=== PATIENT | female | born 1965 | race Caucasian/White ===

== ENCOUNTER 2017-06-30 10:50 | Emergency (ER) | payer OTHER ==
[2017-06-30 12:08] VITALS: BP 119/82
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
== END 2017-06-30 13:17 | disposition home or self-care (01) ==
LOC: UCCORT 10:50
DX: S06.0X9A Concussion with loss of consciousness of unspecified duration, initial encounter (principal); V89.2XXA Person injured in unspecified motor-vehicle accident, traffic, initial encounter; Y92.9 Unspecified place or not applicable
CPT/HCPCS: 70450; 99211; G0463

== ENCOUNTER 2018-06-25 20:34 | Emergency (ER) | payer MEDICAID, OTHER ==
[2018-06-25] MEDS ORDERED: Ondansetron ODT TAB* 4 MG PO ONE ×2 (20:52→21:55)
[2018-06-25 21:12] VITALS: BP 120/80
[2018-06-25] MEDS ORDERED: Cyclobenzaprine TAB* 10 MG PO ONE (21:22)
[2018-06-25] MEDS ORDERED: Ketorolac INJ* 60 MG/2 ML VIAL IM ONE (21:22)
--- NOTE | 2018-06-25 21:27 | UC ---
Neck Pain HPI - HPI Summary HPI Summary: 53-year-old female comes to clinic [facility] with a chief complaint of neck and left shoulder pain. Patient did have this pain on and off for years. It is worse over the last several weeks. She has gotten steroid shots in her left shoulder for the shoulder pain. She reports having had injections in her upper back also which did not help with her chronic neck and back pain. She recently had an MRI of her cervical spine is having a follow-up with an orthopedist and also with a neurosurgeon. No weakness or numbness. No chest pain or shortness of breath. - History of Current Complaint Chief Complaint: UCHeadache Stated Complaint: HEADACHE, SHOULDER/NECK PAIN Time Seen by Provider: 06/25/18 20:59 Hx Last Menstrual Period: 1 yr Pain Intensity: 9 - Allergies/Home Medications Allergies/Adverse Reactions: Allergies Allergy/AdvReac Type Severity Reaction Status Date / Time No Known Allergies Allergy Verified 06/25/18 20:53 Home Medications: Home Medications Acetaminophen 650 mg PO Q6H PRN 06/25/18 [History Confirmed 06/25/18] PMH/Surg Hx/FS Hx/Imm Hx Previously Healthy: Yes - CHRONIC NECK AND LT SHOULDER PAIN - Surgical History Surgical History: Yes Surgery Procedure, Year, and Place: appy. TUBAL LIGATION. Lt SHOULDER - LABRUM TEAR - Family History Known Family History: Negative: Diabetes - Social History Alcohol Use: Rare Substance Use Type: None Smoking Status (MU): Light Every Day Tobacco Smoker Type: Cigarettes Amount Used/How Often: 1/2 PPD Have You Smoked in the Last Year: Yes Household Exposure Type: Cigarettes - Immunization History Most Recent Tetanus Shot: unknown Review Of Systems Skin: Positive: Negative Eyes: Positive: Negative ENT: Positive: Negative Respiratory: Positive: Negative Cardiovascular: Positive: Negative Gastrointestinal: Positive: Negative Genitourinary: Positive: Negative Musculoskeletal: Positive: Other: - SEE HPI Neurological: Positive: Other - SEE HPI Psychological: Positive: Negative All Other Systems Reviewed And Are Negative: No Physical Exam Triage Information Reviewed: Yes Appearance: Well-Appearing, Well-Nourished, Pain Distress - MILD/MODERATE Vital Signs: Initial Vital Signs Temp 98.4 F 06/25/18 20:59 Pulse 76 06/25/18 20:59 Resp 16 06/25/18 20:59 BP 120/80 06/25/18 20:59 Pulse Ox 100 06/25/18 20:59 Vital Signs Reviewed: Yes Eye Exam: Normal Eyes: Positive: Conjunctiva Clear Neck: Positive: Other: - TENDER MIDLIN Respiratory: Positive: Lungs clear, Normal breath sounds, No respiratory distress Cardiovascular: Positive: RRR Musculoskeletal: Positive: Other: - Patient is tender to palpation midline of her neck. She is also tender to palpation in the left trapezius and the left shoulder. Normal radial pulses bilaterally normal sensation and strength in both hands fingers and elbows. No sensation deficit. Patient declines range of motion testing of the left shoulder secondary to pain. Neurological: Positive: Alert, Muscle Tone Normal Psychological Exam: Normal Psychological: Positive: Age Appropriate Behavior Skin Exam: Normal Neck Pain Course/Dx - Course Course Of Treatment: Patient recently had an MRI and has follow-up scheduled with both orthopedics and neurosurgery. She has no neurologic deficits. Here in clinic we gave her Toradol injection and one Flexeril ago. I also wrote a prescription for Flexeril total number of 15. She has an appointment on June 28, 2018 with orthopedics. She is to keep that appointment and get reevaluated sooner if worse or any other questions or concerns. - Differential Dx/Diagnosis Provider Diagnosis: Chronic left shoulder pain, Chronic neck pain Discharge - Sign-Out/Discharge Documenting (check all that apply): Patient Departure All imaging exams completed and their final reports reviewed: No Studies - Discharge Plan Condition: Stable Disposition: HOME Prescriptions: Cyclobenzaprine TAB* [Flexeril 10 MG TAB*] 10 mg PO TID PRN #15 tab MDD 3 PRN Reason: Pain Patient Education Materials: Shoulder Pain (ED), Chronic Neck Pain (DC) Referrals: Lili Bell [Primary Care Provider] - Machelle Mcelroy MD [Medical Doctor] - Additional Instructions: FOLLOW UP WITH DR MCELROY, ORTHOPEDICS, ON 06/28/18 SCHEDULED. GET RECHECKED FOR ANY WORSENING OF YOUR CONDITION; PAIN, WEAKNESS, NUMBNESS OR QUESTIONS OR CONCERNS. - Billing Disposition and Condition Condition: STABLE Disposition: Home
== END 2018-06-25 22:15 | disposition home or self-care (01) ==
LOC: UCCORT 20:34
DX: G89.29 Other chronic pain (principal); M25.512 Pain in left shoulder; M54.2 Cervicalgia; F17.210 Nicotine dependence, cigarettes, uncomplicated
CPT/HCPCS: 96372; 99213; A9270-GY; G0463; J1885

== ENCOUNTER 2019-02-15 17:17 | Emergency (ER) | payer OTHER ==
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
[2019-02-15 17:36] VITALS: BP 105/77
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
--- NOTE | 2019-02-16 12:41 | ED ---
Progress - Progress Note Progress Note: final xray reads reviewed. Elbow film with effusion and possible occult fracture; the provider who saw patient already identified this and encouraged follow up already. Course/Dx - Diagnoses Provider Diagnoses: Right wrist injury, Right elbow pain, Right shoulder injury Discharge ED - Sign-Out/Discharge Documenting (check all that apply): Patient Departure All imaging exams completed and their final reports reviewed: Yes - Discharge Plan Condition: Stable Disposition: HOME Patient Education Materials: Wrist Injury (ED), Shoulder Sprain (ED), Ice Pack Application (ED), Swollen Joint (ED), Safe Use of NSAIDs (ED) Referrals: Machelle Mcelroy MD [Medical Doctor] - As Soon As Possible Lili Bell [Primary Care Provider] - If Needed - Billing Disposition and Condition Condition: STABLE Disposition: Home
== END 2019-02-15 19:13 | disposition home or self-care (01) ==
LOC: UCCORT 17:17
DX: S69.91XA Unspecified injury of right wrist, hand and finger(s), initial encounter (principal); S49.91XA Unspecified injury of right shoulder and upper arm, initial encounter; M25.521 Pain in right elbow; W19.XXXA Unspecified fall, initial encounter; Y92.9 Unspecified place or not applicable; M25.421 Effusion, right elbow; F17.210 Nicotine dependence, cigarettes, uncomplicated
CPT/HCPCS: 99211; G0463

== ENCOUNTER 2019-08-18 18:14 | Emergency (ER) | payer OTHER ==
--- OUTSIDE RECORDS SUMMARY | 2019-08-18 18:21 | XMS REPORT | Continuity of Care Document ---
:1965 External Reference #:[id number] Author Name Machelle Mcelroy MD Address [address] [place] [address] Care Team Providers Name Role Phone Lili Bell NP - Family Care Team Information Orthodontist Vice President [phone] Problems Active Problems Provider Date Strain of rotator cuff capsule Veronique Craig PA Onset: 03/15/2016 Sprain of ankle Veronique Craig PA Onset: 03/15/2016 Neck pain Veronique Craig PA Onset: 04/01/2016 Strain of rotator cuff capsule Veronique Craig PA Onset: 04/01/2016 Disorder of shoulder Veronique Craig PA Onset: 07/16/2016 Shoulder joint pain Erick Lawton M.D. Onset: 07/23/2016 Joint ankylosis of the shoulder region Erick Lawton M.D. Onset: 07/23/2016 Injury of shoulder region Erick Lawton M.D. Onset: 07/23/2016 Glenoid labrum tear Veronique Craig PA Onset: 10/20/2016 Brachial neuritis Erick Lawton M.D. Onset: 12/15/2016 Localized, primary osteoarthritis Veronique Craig PA Onset: 08/29/2017 Social History Type Date Description Comments Sex Unknown Tobacco Use Start: Unknown Current Cigarette Smoker 5-10 Cigarettes Daily Smoking Status Reviewed: 07/23/19 Current Cigarette Smoker 5-10 Cigarettes Daily Smokeless Tobacco Former Smokeless Tobacco User, Used Occasionally ETOH Use Rarely consumes alcohol Tobacco Use Start: Unknown Light tobacco smoker (10 or fewer cigarettes/day) Recreational Drug Use Denies Drug Use Allergies, Adverse Reactions, Alerts Active Allergies Reaction Severity Comments Date Gabapentin doesn't remember reaction 10/03/2018 Flexeril GI issue, contstipation 10/03/2018 Inactive Allergies NKDA 03/15/2016 Medications Active Medications SIG Qnty Indications Ordering Provider Date Tylenol Extra Strength 1-2 tabs by mouth Unknown every 4 hours as 500mg Tablets needed Amitriptyline HCL 1 at hs LeLili 25mg Mel, ASTRONAUT [place]ION SPECIALIST Tablets Ear Drops Earwax Aid Instill 5 To 10 Unknown 6.5% Drops To Left Ear Solution Once A Day as Need To Soften Ear Wax Loratadine Take 1 Tablet By Unknown 10mg Tablets Mouth Once Daily AT Bedtime Topiramate 1 by mouth twice a Unknown 50mg Tablets day Doxycycline Take 1 Capsule By Unknown Monohydrate Mouth Twice Daily 100mg For 7 Days Capsules Incruse Ellipta Inhale 1 puff By Unknown Mouth Once Daily 62.5mcg/Inh Aerosol Nicotine Transdermal apply 1 patch to Unknown System Step 2 skin every 24 14mg/24HR hours for smoking Patches 24HR cessation Medications Administered in Office Medication SIG Qnty Indications Ordering Provider Date Depomedrol 40mg/1cc Machelle Mcelroy MD 01/02/2019 (methylprednisolone acetate) Injection Depomedrol 40mg/1cc Machelle Mcelroy MD 02/20/2018 (methylprednisolone acetate) Injection Methylprednisolone acetate Veronique Craig PA 07/16/2016 (Depomedrol) 80mg injection Injection Methylprednisolone acetate Veronique Craig PA 04/01/2016 (Depomedrol) 80mg injection Injection Immunizations Description No Information Available Vital Signs Date Vital Result Comment 07/23/2019 1:31pm BP Systolic Sitting Right Arm 116 mmHg BP Diastolic Sitting Right Arm 85 mmHg Heart Rate 89 /min 04/05/2019 8:47am BP Systolic Sitting Right Arm 120 mmHg BP Diastolic Sitting Right Arm 74 mmHg Body Temperature 97.2 F Heart Rate 68 /min Height 62 inches 5'2" Weight 152.00 lb BMI (Body Mass Index) 27.8 kg/m2 BSA (Body Surface Area) 1.70 m2 [place] body weight in kilograms 50 kg O2 % BldC Oximetry 98 % Results Test Acquired Date Facility Test Result H/L Range Note Xray 07/23/2019 [facility] - Orthopedic RMP, Shoulder, LT, < pending> [address] [place] [address] Axillary [phone] Xray 07/23/2019 [facility] - Orthopedic RMP, Shoulder, RT, < pending> [address] [place] [address] Axillary [phone] Xray 03/06/2019 [facility] - Orthopedic RMP, Elbow, RT, Ap < pending> [address] & lateral (2 view) [place] [address] [phone] Procedures Date Code Description Status 07/23/2019 22618 Radiology, Shoulder: Two Views (Sso) Completed 04/04/2019 76457 Radiology, Forearm: Two Views Completed 04/04/2019 39998 Radiology, Elbow: Two Views Completed 03/06/2019 97981 Radiology, Forearm: Two Views Completed 03/06/2019 72170 Radiology, Elbow: Two Views Completed 02/19/2019 61182 Radiology, Elbow Complete Completed 02/19/2019 50478 Radial head/neck fx closed w/o manipulation Completed Medical Devices Description No Information Available Encounters Type Date Location Provider Dx Diagnosis Office Visit 07/23/2019 Orthopaedic Office Machelle Mcelroy, M25.511 Pain in right 1:45p MD shoulder M75.42 Impingement syndrome of left shoulder S46.002D Unsp inj musc/tend the rotator cuff of l shoulder, subs Office Visit 02/19/2019 1:30p Orthopaedic Office Machelle Mcelroy, M25.521 Pain in MD right elbow S52.124A Nondisp fx of head of right radius, init for clos fx W19.xxxA Unspecified fall, initial encounter Assessments Date Code Description Provider 07/23/2019 M25.511 Pain in right shoulder Machelle Mcelroy MD 07/23/2019 M75.42 Impingement syndrome of left shoulder Machelle Mcelroy MD 07/23/2019 M75.42 Impingement syndrome of left shoulder Machelle Mcelroy MD 07/23/2019 S46.002D Unspecified injury of muscle(s) and tendon(s) Machelle Mcelroy MD of the rotator cuff of left shoulder, subsequent encounter 04/04/2019 M75.42 Impingement syndrome of left shoulder Machelle Mcelroy MD 04/04/2019 S52.124D Nondisplaced fracture of head of right radius, Machelle Mcelroy MD subsequent encounter for closed fracture with routine healing 04/04/2019 M25.521 Pain in right elbow Machelle Mcelroy MD 03/06/2019 M25.521 Pain in right elbow Machelle Mcelroy MD 03/06/2019 M79.631 Pain in right forearm Machelle Mcelroy MD 03/06/2019 S52.124D Nondisplaced fracture of head of right radius, Machelle Mcelroy MD subsequent encounter for closed fracture with routine healing 02/19/2019 M25.521 Pain in right elbow Machelle Mcelroy MD 02/19/2019 S52.124A Nondisplaced fracture of head of right radius, Machelle Mcelroy MD initial encounter for closed fracture 02/19/2019 W19.xxxA Unspecified fall, initial encounter Machelle Mcelroy MD Plan of Treatment Future Appointment(s):08/01/2019 11:15 am - Machelle Mcelroy MD at Orthopaedic Office Functional Status Description No Information Available Mental Status Description No Information Available Referrals Description No Information Available
--- OUTSIDE RECORDS SUMMARY | 2019-08-18 18:21 | XMS REPORT | Continuity of Care Document ---
:1965 External Reference #:[id number] Author Name Machelle Mcelroy MD Address [address] [place] [address] Care Team Providers Name Role Phone Lili Bell NP - Family Care Team Information Relay Associate Problems Active Problems Provider Date Strain of [...] HCL 1 at hs LeLili 25mg Mel, NURSING HOME ADMINISTRATOR Tablets Ear Drops Earwax Aid Instill 5 [...] kg/m2 BSA (Body Surface Area) 1.70 m2 [place] body weight in kilograms 50 kg O2 % BldC Oximetry 98 % Results Test Acquired Date Facility Test Result H/L Range Note Xray 07/23/2019 [facility] - Orthopedic RMP, Shoulder, LT, < pending> [address] [place] [address] Axillary [phone] Xray 07/23/2019 [facility] - Orthopedic RMP, Shoulder, RT, < pending> [address], [address] [place] [address] Axillary [phone] Xray 03/06/2019 [facility] - Orthopedic RMP, Elbow, RT, Ap < pending> [address] & lateral ([address] view) [place] [address] [phone] Procedures Date Code Description Status 07/23/2019 37200 Radiology, Shoulder: Two Views (Sso) Completed 04/04/2019 23287 Radiology, Forearm: Two Views Completed 04/04/2019 73916 Radiology, Elbow: Two Views Completed 03/06/2019 39647 Radiology, Forearm: Two Views Completed 03/06/2019 39588 Radiology, Elbow: Two Views Completed 02/19/2019 72285 Radiology, Elbow Complete Completed 02/19/2019 17813 Radial head/neck fx closed w/o manipulation Completed Medical Devices Description No Information Available Encounters Type Date Location Provider Dx Diagnosis Office Visit 07/23/2019 Orthopaedic Office Machelle Mcelroy, M25.511 Pain in right 1:45p MD shoulder M75.41 Impingement syndrome of right shoulder S46.001D Unsp inj musc/tend the rotator cuff of r shoulder, subs Office Visit 02/19/2019 1:30p Orthopaedic Office Machelle Mcelroy M25.521 Pain in MD right elbow S52.124A Nondisp fx of head of right radius, init for clos fx W19.xxxA Unspecified fall, initial encounter Assessments Date Code Description Provider 07/23/2019 M25.511 Pain in right shoulder Machelle Mcelroy MD 07/23/2019 M75.41 Impingement syndrome of right shoulder Machelle Mcelroy MD 07/23/2019 M75.42 Impingement syndrome of left shoulder Machelle Mcelroy MD 07/23/2019 S46.001D Unspecified injury of muscle(s) and tendon(s) Machelle Mcelroy MD of the rotator cuff of right shoulder, subsequent encounter 04/04/2019 M75.42 Impingement syndrome [...] am - Machelle Mcelroy MD at Orthopaedic Kmgcud8807/23/2019 - Machelle Mcelroy, MDM25.511 Pain in right ogwzgvyoU44.41 Impingement syndrome of right dmljwvhaW00.001D Unspecified injury of muscle(s) and tendon(s) of the rotator cuff of right shoulder, subsequent encounterNew Xrays:MRI, Upper Extremity, Any Joint, W/O Contrast, Ordered: 07/23/19 Functional Status Description No Information Available Mental Status Description No Information Available Referrals Description No Information Available
--- OUTSIDE RECORDS SUMMARY | 2019-08-18 18:21 | XMS REPORT | Continuity of Care Document ---
:1965 External Reference #:[id number] Author Name Machelle Mcelroy MD (transmitted by agent of provider Jeannine Naranjo) Address [address] [place] [address] Care Team Providers Name Role Phone Lili Bell NP - Family Care Team Information Videotape Sales Representative [phone] Problems Active Problems Provider Date Strain of [...] Tablets needed Amitriptyline HCL 1 at hs Lili Bell 25mg Mel, SHELL TRIM OPERATOR Tablets Ear Drops Earwax Aid Instill 5 [...] kg/m2 BSA (Body Surface Area) 1.70 m2 [place] body weight in kilograms 50 kg O2 % BldC Oximetry 98 % Results Test Acquired Date Facility Test Result H/L Range Note Xray 03/06/2019 [facility] - Orthopedic RMP, Elbow, RT, Ap < pending> [address] [facility] & lateral (2 view) [place] [id number] [phone] Procedures Date Code Description Status 04/04/2019 44376 Radiology, Forearm: Two Views Completed 04/04/2019 10790 Radiology, Elbow: Two Views Completed 03/06/2019 58005 Radiology, Forearm: Two Views Completed 03/06/2019 99890 Radiology, Elbow: Two Views Completed 02/19/2019 96314 Radiology, Elbow Complete Completed 02/19/2019 58979 Radial head/neck fx closed w/o manipulation Completed Medical Devices Description No Information Available Encounters Type Date Location Provider Dx Diagnosis Office Visit 02/19/2019 Orthopaedic Office Machelle Mcelroy, M25.521 Pain in right 1:30p elbow S52.124A Nondisp fx of head of right radius, init for clos fx W19.xxxA Unspecified fall, initial encounter Assessments Date Code Description Provider 04/04/2019 M75.42 Impingement syndrome of left shoulder [...] encounter Machelle Mcelroy MD Plan of Treatment No Information Available Functional Status Description No Information Available Mental Status Description No Information Available Referrals Description No Information Available
[2019-08-18] MEDS ORDERED: Ondansetron INJ* 2 MG/ML VIAL IM ONE (18:37)
[2019-08-18] MEDS ORDERED: Ketorolac *IM* INJ* 60 MG/2 ML VIAL IM ONE (18:37)
--- NOTE | 2019-08-18 18:56 | UC ---
Neck Pain HPI - HPI Summary HPI Summary: 54 yo WF h/o left neck and left shoulder pain associated with nausea and vomiting. Pt previous h/o fall one moth ago fell onto right side and has had chronic neck pains before and exacerbated then. Today she was turning her head to left side when pain became unbearable, came to , does not want to go to ED as she was there 3-4 weeks ago and as she was told she had a "stroke" and could not take care of her pain. She also has been to neurosurgeon Dr Davis, pain management Dr Grecia Richmond, ortho Dr Mcelroy but not able to control her pain. - History of Current Complaint Chief Complaint: UCGeneralIllness Stated Complaint: NECK/SHOULDER COMPLAINT, HEADACHE, VOMITING Time Seen by Provider: 08/18/19 18:28 Hx Obtained From: Patient Hx Last Menstrual Period: done ?: No Onset/Duration: Sudden Onset Severity: Severe Pain Intensity: 10 Character: Sharp, Aching, Stiff, Spasmotic Aggravating Factors: Nothing Alleviating Factors: Nothing Associated Signs & Symptoms: Positive: Negative Related History: Previous Neck Injury, Other - fall - Allergies/Home Medications Allergies/Adverse Reactions: Allergies Allergy/AdvReac Type Severity Reaction Status Date / Time No Known Allergies Allergy Verified 08/18/19 18:25 Home Medications: Home Medications Loratadine 10 mg PO BEDTIME 02/15/19 [History Confirmed 08/18/19] Topiramate [Topamax] 50 mg PO DAILY 03/23/19 [History Confirmed 08/18/19] Metoclopramide TAB* [Reglan TAB*] 1 tab BID PRN 08/18/19 [History Confirmed 12/30] PMH/Surg Hx/FS Hx/Imm Hx - Additional Past Medical History Additional PMH: right neck pain Previously Healthy: Yes - Surgical History Surgical History: Yes Surgery Procedure, Year, and Place: APPENDECTOMY. TUBAL LIGATION. Lt SHOULDER - LABRUM TEAR - Family History Known Family History: Positive: Non-Contributory Negative: Diabetes - Social History Alcohol Use: None Substance Use Type: None Smoking Status (MU): Light Every Day Tobacco Smoker Type: Cigarettes Amount Used/How Often: 5-6 cigarettes/day Length of Time of Smoking/Using Tobacco: 30 yrs Have You Smoked in the Last Year: Yes Household Exposure Type: Cigarettes - Immunization History Most Recent Tetanus Shot: unknown Vaccination Up to Date: No Review of Systems All Other Systems Reviewed And Are Negative: Yes Constitutional: Positive: Negative Skin: Positive: Negative Eyes: Positive: Negative ENT: Positive: Negative Respiratory: Positive: Negative Cardiovascular: Positive: Negative Gastrointestinal: Positive: Negative Genitourinary: Positive: Negative Motor: Positive: Decreased ROM. Negative: Weakness Neurovascular: Positive: Negative Musculoskeletal: Positive: Negative, Other: - severe left neck pain, n/v Neurological/Mental Status: Positive: Negative Psychological: Positive: Negative Physical Exam - Summary Physical Exam Summary: Vital Signs Reviewed: Yes Appearance: Positive: Nauseous, retching, vomiting, ill appearing Skin: Positive: Warm Head/Face: Positive: Normal Head/Face Inspection Eyes: Positive: Normal ENT: Positive: Normal ENT inspection Dental: Negative: Cervical Lymphadenopathy Neck: Positive: Supple Respiratory/Lung Sounds: Positive: Clear to Auscultation Cardiovascular: Positive: Normal, RRR, S1, S2 Abdomen Description: Positive: Nontender Musculoskeletal: Severe TTP left occiput radiating to left upper trapezius Neurological: Positive: Normal Psychiatric: Positive: Normal Triage Information Reviewed: Yes Appearance: Pain Distress Vital Signs: Initial Vital Signs Temp 37.4 C 08/18/19 18:21 Pulse 77 08/18/19 18:21 Resp 16 08/18/19 18:21 BP 115/72 08/18/19 18:21 Pulse Ox 98 08/18/19 18:21 Neck Pain Course/Dx - Course Course Of Treatment: Pt's neck pain improved drastically with 1L NS, Benadryl 25mg IV and Reglan 10mg IV, pt also prefers the room to be DARK. PT STATES SHE TAKES PO BENADRYL AND PO REGLAN AT HOME BUT PAIN IS STILL REFRACTORY. I SUSPECT THAT HER NECK PAIN MAY BE A REACTIVE MUSCLE CONTRACTION DUE TO SEVERE MIGRAINE FLARE-UP AND THAT THE encounter today is LESS LIKELY of primary intractable Neck pain but really THAT OF INTRACTABLE ATYPICAL MIGRAINE BOWDEN. I'M NOT SURE THAT PREVIOUS CONSULTATIONS BY SPECIALISTS MAY HAVE GONE OVER THIS ISSUE. I ADVISED DAUGHTER AND PT TO GO SEEK OUT A MIGRAINE SPECIALIST AND/ OR NEUROLOGIST TO WORK UP/ RULE OUT THIS POSSIBILITY. - Differential Dx/Diagnosis Provider Diagnosis: Neck pain on left side, Nausea & vomiting Discharge ED - Sign-Out/Discharge Documenting (check all that apply): Patient Departure All imaging exams completed and their final reports reviewed: Yes - Discharge Plan Condition: Stable Disposition: HOME Patient Education Materials: Migraine Headache (ED) Referrals: Felicity Hatch PA [Primary Care Provider] - Additional Instructions: PLEASE FOLLOW UP WITH NEUROLOGIST JASON TO RULE OUT AND ASSESS FOR ATYPICAL MIGRAINE - Billing Disposition and Condition Condition: STABLE Disposition: Home
[2019-08-18] MEDS ORDERED: Metoclopramide IV* 5 MG/ML 2 ML VIAL IV ONE ×2 (19:03→19:20)
[2019-08-18] MEDS ORDERED: diPHENhydraMINE IV* 50 MG/ML 1 ml VIAL (BENADRYL) IV ONE (19:06)
[2019-08-18] MEDS ORDERED: NS 0.9% 1000 ML** 1,000 ML IV ONE (19:13)
[2019-08-18] MEDS ORDERED: Metoclopramide IV* 5 MG/ML 2 ML VIAL IV PRN (19:18)
[2019-08-18 20:37] VITALS: BP 98/73
== END 2019-08-18 20:28 | disposition home or self-care (01) ==
LOC: UCCORT 18:14
DX: M54.2 Cervicalgia (principal); R11.2 Nausea with vomiting, unspecified; F17.210 Nicotine dependence, cigarettes, uncomplicated; W19.XXXD Unspecified fall, subsequent encounter
CPT/HCPCS: 96361; 96372; 96374; 96375; 99212; G0463; J1200; J1885; J2405; J2765

== ENCOUNTER 2019-08-31 12:27 | Emergency (ER) | payer OTHER ==
--- OUTSIDE RECORDS SUMMARY | 2019-08-31 15:10 | XMS REPORT | Continuity of Care Document ---
:1965 External Reference #:[id number] Author Name Eric De FNP (transmitted by agent of provider Smiley Paredes) Address [address] [place] [address] Care Team Providers Name Role Phone Lili Bell NP - Family Care Team Information Electric Deicer Inspector Problems Active Problems Provider Date Strain of [...] Smoker 5-10 Cigarettes Daily Smoking Status Reviewed: 08/27/19 Current Cigarette Smoker 5-10 Cigarettes Daily Smokeless [...] Medications Active Medications SIG Qnty Indications Ordering Date Provider Prednisone 2 tabs by mouth 10tabs J44.1 Branden Ortiz, 08/27/2019 20mg Tablets every day Azithromycin take 2 tablets on 6tabs J44.1 Branden Ortiz, 08/27/2019 250mg day one, one MD Tablets tablet on day 2-5 Tylenol Extra Strength 1-2 tabs by mouth Unknown every 4 hours as 500mg Tablets needed Amitriptyline HCL 1 at hs Le, Lili 25mg Mel, WASTE RECLAIMER Tablets Ear Drops Earwax Aid Instill 5 To 10 Unknown 6.5% Drops To Left Ear Solution Once A Day as Need To Soften Ear Wax Loratadine Take 1 Tablet By Unknown 10mg Tablets Mouth Once Daily AT Bedtime Topiramate 1 by mouth twice Unknown 50mg Tablets a day Incruse Ellipta Inhale 1 puff By Unknown [...] Available Vital Signs Date Vital Result Comment 08/27/2019 12:02pm BP Systolic 113 mmHg BP Diastolic 84 mmHg Body Temperature 97.5 F Heart Rate 77 /min Respiratory Rate 18 /min Weight 152.25 lb Pain Level 6 O2 % BldC Oximetry 99 % 07/23/2019 1:31pm BP Systolic Sitting Right Arm 116 mmHg BP Diastolic Sitting Right Arm 85 mmHg Heart Rate 89 /min Results Test Acquired Date Facility Test Result H/L Range Note Xray 03/06/2019 [facility] - Orthopedic RMP, Elbow, RT, Ap < pending> [address] & lateral (2 view) [place] [address] [phone] Procedures Date Code Description Status 07/23/2019 85176 Radiology, Shoulder: Two Views (Sso) Completed 07/23/2019 06632 Radiology, Shoulder: Two Views (Sso) Completed 07/23/2019 88005 Radiology, Shoulder: Two Views (Sso) Completed 04/04/2019 48722 Radiology, Forearm: Two Views Completed 04/04/2019 92847 Radiology, Elbow: Two Views Completed 03/06/2019 30398 Radiology, Forearm: Two Views Completed 03/06/201907882 Radiology, Elbow: Two Views Completed Medical Devices Description No Information Available Encounters Type Date Location Provider Dx Diagnosis Office Visit 08/27/2019 Walk In Clinic Eric De J44.1 Chronic obstructive 12:00p SECY pulmonary disease w (acute) exacerbation Office Visit 07/23/2019 Orthopaedic Office Machelle Mcelroy, M25.511 Pain in right 1:45p shoulder M75.41 Impingement syndrome of right shoulder S46.001D Unsp inj musc/tend the rotator cuff of r shoulder, subs Assessments Date Code Description Provider 08/27/2019 J44.1 Chronic obstructive pulmonary disease with Eric De FNP (acute) exacerbation 07/23/2019 M75.42 Impingement syndrome of left shoulder Machelle Mcelroy MD 07/23/2019 S46.002D Unspecified injury of muscle(s) and tendon(s) Machelle Mcelroy MD of the rotator cuff of left shoulder, subsequent encounter 07/23/2019 M25.511 Pain in right shoulder Machelle Mcelroy MD 07/23/2019 M75.41 Impingement syndrome of right shoulder Machelle Mcelroy MD 07/23/2019 S46.001D Unspecified injury of muscle(s) and tendon(s) Machelle Mcelroy MD of the rotator cuff of right shoulder, subsequent encounter 04/04/2019 M75.42 Impingement syndrome of left shoulder Machelle Mcelroy MD 04/04/2019 S52.124D Nondisplaced fracture of head of right Machelle Mcelroy MD radius, subsequent encounter for closed fracture with routine healing 04/04/2019 M25.521 Pain in right elbow Machelle Mcelroy MD 03/06/2019 M25.521 Pain in right elbow Machelle Mcelroy MD 03/06/2019 M79.631 Pain in right forearm Machelle Mcelroy MD 03/06/2019 S52.124D Nondisplaced fracture of head of right Machelle Mcelroy MD radius, subsequent encounter for closed fracture with routine healing Plan of Treatment 08/27/2019 - Eric De, FNPJ44.1 Chronic obstructive pulmonary disease with (acute) exacerbationNew Medication:Prednisone 20 mg - 2 tabs by mouth every dayAzithromycin 250 mg - take 2 tablets on day one, one tablet on day 2- 5Comments:- I have ordered an antibiotic and steroids that should help with the respiratory symptoms that you are having.- Since the chest tenderness is reproducible (hurts when I touch it) I do not think you need to go to the ER for further work up right now - HOWEVER- if anything changes - such as you get increasingly short of breath, have chest pains, sweating or dizziness. you need to go to the ER. - Stay well hydrated to keep phlegm thinner and easier to cough up. - Avoid large crowds or people who aresick during current illness.- Use you albuterol every 4-6 hours during periods of acute illness. Functional Status Description No Information Available Mental Status Description No Information Available Referrals Description No Information Available
--- OUTSIDE RECORDS SUMMARY | 2019-08-31 15:10 | XMS REPORT | Continuity of Care Document ---
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 Problems Active Problems Provider Date Strain of [...] 1 at hs Le, Lili 25mg Mel, PORTER [employer]ED [employer] Tablets Ear Drops Earwax Aid Instill 5 [...] 07/16/2016 (Depomedrol) 80mg injection Injection Methylprednisolone acetate Vernoique Craig PA 04/01/2016 (Depomedrol) 80mg injection Injection [...] Test Result H/L Range Note Xray 03/06/2019 [facility] - Orthopedic RMP, Elbow, RT, Ap < pending> [address] & lateral (2 view) [place] [address] [phone] Procedures Date Code Description Status 07/23/2019 59809 Radiology, Shoulder: Two Views (Sso) Completed 07/23/2019 73749 Radiology, Shoulder: Two Views (Sso) Completed 07/23/2019 24070 Radiology, Shoulder: Two Views (Sso) Completed 04/04/2019 75377 Radiology, Forearm: Two Views Completed 04/04/2019 17024 Radiology, Elbow: Two Views Completed 03/06/2019 94415 Radiology, Forearm: Two Views Completed 03/06/201980020 Radiology, Elbow: Two Views Completed Medical Devices Description No Information Available Encounters Type Date Location Provider Dx Diagnosis Office Visit 08/27/2019 Walk In Clinic Eric De J44.1 Chronic obstructive 12:00p RECOVERY COORDINATOR pulmonary disease w (acute) exacerbation Office Visit [...]
[2019-08-31 16:14] VITALS: BP 124/82
--- NOTE | 2019-08-31 16:15 | UC ---
Respiratory Complaint HPI - HPI Summary HPI Summary: Pt presents with c/o of productive cough, chills, occasional diarrhea. [facility] with [facility]. Pt was RX'd zpac, prednisone and has albuterol INH. STates that diarrhea has resolved but cough has not imporved and thinks it is worsening. - History of Current Complaint Chief Complaint: UCRespiratory Stated Complaint: COUGH,ST,DIARRHEA Time Seen by Provider: 08/31/19 15:31 Hx Obtained From: Patient Hx Last Menstrual Period: done ?: No Onset/Duration: Sudden Onset, Lasting Weeks, Still Present Severity Initially: Mild Severity Currently: Moderate Pain Intensity: 6 Character: Cough: Productive Aggravating Factors: Exertion, Deep Breaths, Recumbent Position Alleviating Factors: Nothing Associated Signs And Symptoms: Positive: Wheezing, URI, Nasal Congestion - Risk Factors Pulmonary Embolism Risk Factors: Negative Cardiac Risk Factors: Negative Pseudomonas Risk Factors: Negative Tuberculosis Risk Factors: Negative - Allergies/Home Medications Allergies/Adverse Reactions: Allergies Allergy/AdvReac Type Severity Reaction Status Date / Time No Known Allergies Allergy Verified 08/31/19 15:11 Home Medications: Home Medications Loratadine 10 mg PO BEDTIME 02/15/19 [History Confirmed 08/31/19] Topiramate [Topamax] 50 mg PO DAILY 03/23/19 [History Confirmed 08/31/19] Metoclopramide TAB* [Reglan TAB*] 1 tab BID PRN 08/18/19 [History Confirmed ] Albuterol HFA INHALER* [Ventolin HFA Inhaler*] 1 puff Q4HR PRN 08/31/19 [ History Confirmed 08/31/19] Amoxicillin PO (*) [Amoxicillin 875 MG (*)] 875 mg PO Q12H #14 tab 08/31/19 [Rx] Codeine Phosphate/Guaifenesin [Guaifen-Codeine 100-10 mg/5 ml] 5 ml PO BEDTIME PRN #25 ml MDD 5 ml 08/31/19 [Rx] Umeclidinium 62.5 MDI(NF) [Incruse ELLIPTA MDI (NF)] 1 puff DAILY 08/31/19 [ History Confirmed 08/31/19] predniSONE 10 mg TAB [Deltasone 10 MG TAB*] 30 mg PO DAILY #18 tab 08/31/19 [Rx] PMH/Surg Hx/FS Hx/Imm Hx Previously Healthy: Yes Respiratory History: Asthma - Surgical History Surgical History: Yes Surgery Procedure, Year, and Place: APPENDECTOMY. TUBAL LIGATION. Lt SHOULDER - LABRUM TEAR - Family History Known Family History: Positive: Cardiac Disease, Non-Contributory Negative: Diabetes - Social History Occupation: Employed Full-time Lives: With Family Alcohol Use: None Substance Use Type: None Smoking Status (MU): Light Every Day Tobacco Smoker Type: Cigarettes Amount Used/How Often: 5-6 cigarettes/day Length of Time of Smoking/Using Tobacco: 30 yrs Have You Smoked in the Last Year: Yes Household Exposure Type: Cigarettes - Immunization History Most Recent Tetanus Shot: unknown Vaccination Up to Date: No Review of Systems All Other Systems Reviewed And Are Negative: Yes Constitutional: Positive: Fatigue Skin: Positive: Negative Eyes: Positive: Negative ENT: Positive: Negative Respiratory: Positive: Shortness Of Breath, Cough Cardiovascular: Positive: Negative Gastrointestinal: Positive: Negative Genitourinary: Positive: Negative Motor: Positive: Negative Neurovascular: Positive: Negative Musculoskeletal: Positive: Negative Neurological/Mental Status: Positive: Negative Psychological: Positive: Negative Is Patient Immunocompromised?: No Physical Exam Triage Information Reviewed: Yes Appearance: Ill-Appearing Vital Signs Reviewed: Yes Eye Exam: Normal ENT: Positive: Nasal congestion Dental Exam: Normal Neck exam: Normal Respiratory: Positive: No respiratory distress Musculoskeletal Exam: Normal Neurological Exam: Normal Psychological Exam: Normal Skin Exam: Normal Respiratory Course/Dx - Course Course Of Treatment: PE limited due to COVID precautions taken - Differential Dx/Diagnosis Differential Diagnosis/HQI/PQRI: Bronchitis, Influenza, Other - pneumonia Provider Diagnosis: Bronchitis Discharge ED - Sign-Out/Discharge Documenting (check all that apply): Patient Departure All imaging exams completed and their final reports reviewed: No Studies - Discharge Plan Condition: Stable Disposition: HOME Prescriptions: Amoxicillin PO (*) [Amoxicillin 875 MG (*)] 875 mg PO Q12H #14 tab Codeine Phosphate/Guaifenesin [Guaifen-Codeine 100-10 mg/5 ml] 5 ml PO BEDTIME PRN #25 ml MDD 5 ml PRN Reason: Cough predniSONE 10 mg TAB [Deltasone 10 MG TAB*] 30 mg PO DAILY #18 tab Patient Education Materials: Acute Bronchitis (ED) Forms: COVID-19 Tested & Isolation Referrals: Felicity Hatch PA [Primary Care Provider] - If Needed - Billing Disposition and Condition Condition: STABLE Disposition: Home
--- NOTE | 2019-09-03 17:20 | UC ---
- Progress Note Progress Note: Reviewed result: SARS-CoV-2 is undetected. Patient called in for report, and can be informed of this; quarantine can be discontinued although physical distancing should be maintained. Course/Dx - Diagnoses Provider Diagnoses: Bronchitis Discharge ED - Sign-Out/Discharge Documenting (check all that apply): Post-Discharge Follow Up All imaging exams completed and their final reports reviewed: No Studies - Discharge Plan Condition: Stable Disposition: HOME Prescriptions: Amoxicillin PO (*) [Amoxicillin 875 MG (*)] 875 mg PO Q12H #14 tab Codeine Phosphate/Guaifenesin [Guaifen-Codeine 100-10 mg/5 ml] 5 ml PO BEDTIME PRN #25 ml MDD 5 ml PRN Reason: Cough predniSONE 10 mg TAB [Deltasone 10 MG TAB*] 30 mg PO DAILY #18 tab Patient Education Materials: Acute Bronchitis (ED) Forms: COVID-19 Tested & Isolation Referrals: Felicity Hatch PA [Primary Care Provider] - If Needed - Billing Disposition and Condition Condition: STABLE Disposition: Home
== END 2019-08-31 16:14 | disposition home or self-care (01) ==
LOC: UCCORT 12:27
DX: J45.909 Unspecified asthma, uncomplicated (principal); Z20.828 Contact with and (suspected) exposure to other viral communicable diseases; F17.210 Nicotine dependence, cigarettes, uncomplicated
CPT/HCPCS: 99212; G0463; U0002